=== PATIENT | female | born 1960 | race African-American/Black ===

== ENCOUNTER 2016-08-08 20:28 | Emergency (ER) | payer SELFPAY ==
[~2016-08-08] VITALS: Ht 167.6 cm; Wt 95.2 kg
[2016-08-08 21:34] LABS: MCH 28.9 PG (29.0-34.0); MCHC 34.2 G/DL (30.0-36.0); MCV 84.4 FL (83-99); MEAN PLAT.VOLUME 9.4 uM^3 (9.5-12.4); PLATELET COUNT 441 K/uL (156-360); RBC DIS.WIDTH-CV 13.2 % (11.8-14.6); RBC DIS.WIDTH-SD 40.3 % (39-53); RED BLOOD COUNT 5.33 M/uL (3.80-5.20)
[2016-08-08 21:49] LABS: CHLORIDE 98 mEq/L (99-109); POTASSIUM 4.3 mEq/L (3.7-5.4); SODIUM 137 mEq/L (136-147)
[2016-08-08 21:50] LABS: GLUCOSE 235 mg/dL (70-99)
[2016-08-08 21:52] LABS: ANION GAP 16 MEQ/L (2-14)
[2016-08-08 21:54] LABS: GFR ESTIMATE (CALCULATED) > 59 mL/min/
[2016-08-08 21:55] LABS: TROP-I INTERPRETATION NEGATIVE; TROPONIN-I 0.02 ng/mL (0.0-0.30); UREA NITROGEN (BUN) 12 mg/dL (9-23)
[2016-08-08] MEDS ORDERED: PROAIR RESPICL90 MCG IH (23:22)
[2016-08-08] MEDS ORDERED: PROCARDIA XL90 MG PO (23:23)
[2016-08-08] MEDS ORDERED: LO-DOSE ASPIRIN81 M2 PO (23:23)
[2016-08-08] MEDS ORDERED: BYSTOLIC20 MG PO (23:24)
[2016-08-08] MEDS ORDERED: MECLIZINE HCL25 MG PO (23:25)
[2016-08-08] MEDS ORDERED: CRESTOR10 MG PO (23:26)
[2016-08-08] MEDS ORDERED: SPIRONOLACTONE25 MG PO ×2 (23:28→23:43)
[2016-08-08] MEDS ORDERED: NIFEDIPINE ER90 MG PO (23:43)
[2016-08-08] MEDS ORDERED: ROSUVASTATIN CA10 MG PO (23:43)
[2016-08-09 00:20] VITALS: BP 152/78
== END 2016-08-09 00:22 | disposition home or self-care (01) ==
LOC: EME 20:28
DX: I10 Essential (primary) hypertension (principal); R51 Headache; R07.9 Chest pain, unspecified; R73.9 Hyperglycemia, unspecified; J44.9 Chronic obstructive pulmonary disease, unspecified; Z79.82 Long term (current) use of aspirin; Z87.891 Personal history of nicotine dependence
CPT/HCPCS: 71020; 71275; 80048; 84484; 85027; 93005; 99281; 99285

== ENCOUNTER 2016-11-23 03:05 | Emergency (ER) | payer SELFPAY ==
[~2016-11-23] VITALS: Ht 170.2 cm; Wt 92.1 kg
[~2016-11-23 03:05] MED LIST: BYSTOLIC20 MG PO; CRESTOR10 MG PO; LO-DOSE ASPIRIN81 M2 PO; MECLIZINE HCL25 MG PO; NIFEDIPINE ER90 MG PO; PROAIR RESPICL90 MCG IH; PROCARDIA XL90 MG PO; ROSUVASTATIN CA10 MG PO; SPIRONOLACTONE25 MG PO
[2016-11-23 04:03] LABS: BASOPHIL COUNT 0.1 K/uL (0-0.1); EOSINOPHIL COUNT 0.1 K/uL (0-0.3); HEMATOCRIT 43.6 % (36.0-46.0); IMMATURE GRANULOCYTE (%) 0.6 % (0.0-0.7); IMMATURE GRANULOCYTE COUNT 0.1 K/uL; INSTRUMENT ABS NEUTROPHIL CT 5.4 K/uL; LYMPHOCYTE COUNT 3.1 K/uL (1.0-2.8); MCH 28.5 PG (29.0-34.0); MCHC 33.9 G/DL (30.0-36.0); MEAN PLAT.VOLUME 9.4 uM^3 (9.5-12.4); MONOCYTE (%) 9.6 % (3-12); MONOCYTE COUNT 0.9 K/uL (0-0.8); NEUTROPHIL (%) 55.9 % (45-76); NEUTROPHIL COUNT 5.4 K/uL (1.8-6.4); PLATELET COUNT 386 K/uL (156-360); RBC DIS.WIDTH-CV 13.1 % (11.8-14.6); RBC DIS.WIDTH-SD 39.9 % (39-53); RED BLOOD COUNT 5.19 M/uL (3.80-5.20); WHITE BLOOD COUNT 9.6 K/uL (4.1-10.2)
[2016-11-23 04:12] LABS: PROTHROMBIN TIME 10.4 (9.2-11.2); PTT 26.7 (25-32)
[2016-11-23 04:16] LABS: CHLORIDE 99 mEq/L (99-109); POTASSIUM 3.6 mEq/L (3.7-5.4); SODIUM 134 mEq/L (136-147)
[2016-11-23 04:17] LABS: MAGNESIUM 1.8 mg/dL (1.3-2.7)
[2016-11-23 04:18] LABS: GLUCOSE 296 mg/dL (70-99)
[2016-11-23 04:20] LABS: ANION GAP 13 MEQ/L (2-14)
[2016-11-23 04:22] LABS: GFR ESTIMATE (CALCULATED) > 59 mL/min/
[2016-11-23 04:23] LABS: UREA NITROGEN (BUN) 12 mg/dL (9-23)
[2016-11-23 04:24] LABS: TROP-I INTERPRETATION NEGATIVE; TROPONIN-I 0.01 ng/mL (0.0-0.30)
[2016-11-23] MEDS ORDERED: BYSTOLIC20 MG PO (04:40)
[2016-11-23 04:50] VITALS: BP 119/87
== END 2016-11-23 05:23 | disposition home or self-care (01) ==
LOC: EME 03:05
PROVIDERS: Emergency Medicine
DX: R00.0 Tachycardia, unspecified (principal); I11.0 Hypertensive heart disease with heart failure; I50.9 Heart failure, unspecified; F41.1 Generalized anxiety disorder; T46.5X6A Underdosing of other antihypertensive drugs, initial encounter; Z91.128 Patient's intentional underdosing of medication regimen for other reason; J44.9 Chronic obstructive pulmonary disease, unspecified; Z87.891 Personal history of nicotine dependence
CPT/HCPCS: 70450; 71010; 71275; 80048; 83735; 84484; 85025; 85610; 85730; 93005; 99281; 99284; J2060